=== PATIENT | male | born 1975 | race Caucasian/White ===

== ENCOUNTER → 2020-04-02 11:04 | Outpatient (CLI) | payer OTHER, MEDICAID, SELFPAY ==
--- NOTE | 2020-04-02 | DI.US.S_ITS ---
PROCEDURE: US RENAL COMPLETE INDICATIONS: PERSONAL HISTORY OF RENAL CALCULI TECHNIQUE: Real-time scanning was performed of the kidneys and bladder, with image documentation. COMPARISON: Outside Film, US, US ABDOMEN COMPLETE, 11/26/2019, 15:14. Outside Film, CT, CT ABDOMEN PELVIS WITH CONTRAST, 12/19/2019, 5:29. FINDINGS: Kidneys: Kidneys are normal in size. Right kidney measures 11.8 cm long; left kidney measures 10.8 cm long. Right renal cortical thickness is 1.6 cm; left renal cortical thickness is 1.5 cm. Renal cortical echotexture is normal. No suspicious solid mass lesions. Mild persistent hydronephrosis of the right kidney, similar to the prior ultrasound 11/26/2019. This persists postvoid. No hydronephrosis on the left. Bladder: Pre-void bladder volume is 76 mL. Post-void residual is 6 mL. Pre-void images demonstrate no intraluminal masses or stones. On pre-void images, both ureteral jets are noted with color Doppler interrogation. (Of note, ureteral jets may not be detectable in up to 25% of cases due to insufficient differences in specific gravity between ureteral and bladder urine). Miscellaneous: No free pelvic fluid. IMPRESSION: 1. Mild persistent right hydronephrosis. Previously seen right ureteral stone in the proximal right ureter is not identified. -consider CT KUB for further evaluation. 2. No left hydronephrosis. 3. No significant postvoid residual. Dictated by: Armani Peña M.D. on 04/02/2020 at 13:32 Approved by: Armani Peña M.D. on 04/02/2020 at 13:46
== END ==
PROVIDERS: PCP Family Medicine; Referring Provider Urology; Visit Provider Urology
DX: N13.30 Unspecified hydronephrosis (principal); Z87.442 Personal history of urinary calculi
CPT/HCPCS: 76770

== ENCOUNTER 2021-07-01 03:12 | Emergency (ER) | payer OTHER, MEDICAID, SELFPAY ==
[2021-07-01 03:15] VITALS: BP 170/84; PULSE 64; RESP 18; TEMP 36.7; O2SAT 98; BMI 43.8
--- NOTE | 2021-07-01 04:22 | ED_ITS ---
HPI - Back Pain/Injury General Chief Complaint: Back Pain/Injury Stated Complaint: kidney pain x14 days Time Seen by Provider: 07/01/21 03:37 Source: patient History of Present Illness HPI Narrative: Patient is a 38-year-old male history kidney stones, gastric bypass surgery 2016 and very remote history of lithotripsy presenting with ongoing weakness fatigue chills and sweats. He was actually diagnosed with pyelonephritis in May [facility] on 05/26/2021. Had that time he had blood work and CT scan urine culture did show E coli he was placed on cefdinir as an outpatient for 10 days. He said actually follow-up this primary care provider who put him on another 10 day course of Levaquin which she finished today. He says for the last 1 week he continues to feel weak and lethargic. He says he has temperature regulation issues he wakes up and has significant drenching sweats. He has lost 10-12 lb in the last 1 week without trying. He denies any chest pain or palpitations. He continues to have intermittent left flank pain. No painful or frequent urination. Certainly he has had loss of appetite as well. He does approve a little pale. He denies any black or bloody stools Related Data Allergies Allergy/AdvReac Type Severity Reaction Status Date / Time Penicillins Allergy Unknown Verified 07/01/21 03:58 Sulfa (Sulfonamide Allergy Unknown Verified 07/01/21 03:57 Antibiotics) Review of Systems Review of Systems Narrative: GENERAL: See HPI HEENT: Denies sinus pain, ear pain, sore throat, difficulty swallowing, neck pain RESPIRATORY: Denies dyspnea, cough, wheezing, hemoptysis, sputum. CARDIOVASCULAR: Denies chest pain, palpitations, orthopnea, edema GASTROINTESTINAL: Denies nausea, vomiting, abdominal pain, diarrhea, constipation, melena. : See HPI MUSCULOSKELETAL: Denies weakness, joint pain, or bony pain SKIN: No rash, no erythema, no pruritus NEUROLOGIC: Denies weakness, dizziness, headache, numbness, change in speech, confusion PSYCHIATRIC: No concerning psychosocial issues. 12 point review of systems is negative except for those stated above and HPI Patient History Medical History (Updated 07/01/21 @ 04:54 by Madyson Valentin DO) Hypertension Kidney stones Surgical History (Updated 07/01/21 @ 04:25 by Madyson Valentin DO) Status post gastric bypass for obesity Social History Smoking Status: Never smoker Smoking Status: Never smoker Substance Use Type: does not use Exam Initial Vital Signs Initial Vital Signs: Vital Signs Temperature 98.1 F 07/01/21 03:15 Pulse Rate 64 07/01/21 03:15 Respiratory Rate 18 07/01/21 03:15 Blood Pressure 170/84 H 07/01/21 03:15 Pulse Oximetry 98 07/01/21 03:15 GENERAL alert 46-year-old male appears slightly pale HEENT: Head atraumatic,EOMI, pupils reactive, face symmetric, moist mucous membranes CARDIOVASCULAR: Regular rate and rhythm without murmurs, rubs or gallops. RESPIRATORY: Breath sounds equal bilaterally, no wheezes rales or rhonchi. ABDOMEN: Soft, nontender. Normoactive bowel sounds all 4 quadrants. No guar ding or rebound. : No CVA tenderness EXTREMITIES: Normal range of motion, no clubbing or edema. Neurovascularly intact NEUROLOGICAL: Alert and oriented x4.Normal gait and speech SKIN: Warm, dry, no laceration, no petechiae, no rashes or lesions. Course Orders Ordered: ED Orders 07/01/21 04:15 COVID19 -Nasal swab/Pre-Proc Stat Complete Blood Count AUTO DIFF Stat Comprehensive Metabolic Panel Stat Lactate (Lactic Acid) Stat Lipase Stat Procalcitonin Stat Discontinued Medications Sodium Chloride (Normal Saline 0.9%) 1,000 mls @ 1,000 mls/hr IV CONT JUAN Last Infusion: 07/01/21 05:34 Dose: 0 mls/hr Documented by: Infusion: 07/01/21 05:29 Dose: 0 mls/hr Documented by: Admin: 07/01/21 04:44 Dose: 1,000 mls/hr Documented by: ASHISH Vital Signs Vital signs: Vital Signs - 8 hr 07/01/21 03:15 07/01/21 05:23 Temperature 98.1 F Pulse Rate 64 58 L Respiratory Rate 18 20 Blood Pressure 170/84 H 131/76 Pulse Oximetry 98 99 MDM - Back Pain/Injury Lab Data Result diagrams: 07/01/21 04:15 07/01/21 04:15 Labs: Lab Results 07/01/21 07/01/21 07/01/21 Range/Units 04:15 04:15 04:15 WBC 8.6 (4.5-11.0) X10^3/uL RBC 3.90 L (4.5-5.9) X10^6/uL Hgb 10.6 L (13.5-17.5) g/dL Hct 31.6 L (41-53) % MCV 80.9 (80-100) fL MCH 27.1 (26-34) PG MCHC 33.5 (30-36) % RDW 13.5 (11.6-14.8) % Plt Count 369 (150-400) X10^3/uL Neut % (Auto) 75.8 H (50-75) % Lymph % (Auto) 17.2 L (25-40) % [place] % (Auto) 5.0 (3-14) % Eos % (Auto) 0.9 L (2-4) % Baso % (Auto) 1.1 (0-2) % Neut # (Auto) 6600 (2247-8429) /uL Lymph # (Auto) 1500 (7279-7547) /uL [place] # (Auto) 400 (0-900) /uL Eos # (Auto) 100 (0-450) /uL Baso # (Auto) 100 (0-100) /uL Sodium 134 L (137-145) mmol/L Potassium 3.9 (3.4-5.1) mmol/L Chloride 99 (98-107) mmol/L Carbon Dioxide 31 (22-32) mmol/L BUN 9 (9-20) mg/dL Creatinine 0.73 (0.66-1.25) mg/dL Estimated GFR > 60.0 (>60) mL/min BUN/Creatinine Ratio 12.3 (6-22) Glucose 97 (70-100) mg/dL Lactate 1.1 (0.7-2.1) mmol/L Calcium 8.7 (8.4-10.2) mg/dL Total Bilirubin 0.5 (0.2-1.3) mg/dL AST 46 (17-59) IU/L ALT 37 (<50) IU/L Alkaline Phosphatase 87 (38-126) U/L Total Protein 7.7 (6.3-8.2) g/dL Albumin 3.4 L (3.5-5.0) g/dL Globulin 4.3 H (1.7-4.1) g/dL Albumin/Globulin Ratio 0.8 L (1.0-2.8) Lipase 28 (23-300) U/L Procalcitonin (<0.5) ng/mL SARS-CoV-2 (PCR) (Negative) 07/01/21 07/01/21 Range/Units 04:15 04:15 WBC (4.5-11.0) X10^3/uL RBC (4.5-5.9) X10^6/uL Hgb (13.5-17.5) g/dL Hct (41-53) % MCV (80-100) fL MCH (26-34) PG MCHC (30-36) % RDW (11.6-14.8) % Plt Count (150-400) X10^3/uL Neut % (Auto) (50-75) % Lymph % (Auto) (25-40) % [place] % (Auto) (3-14) % Eos % (Auto) (2-4) % Baso % (Auto) (0-2) % Neut # (Auto) (6427-5863) /uL Lymph # (Auto) (1365-8779) /uL [place] # (Auto) (0-900) /uL Eos # (Auto) (0-450) /uL Baso # (Auto) (0-100) /uL Sodium (137-145) mmol/L Potassium (3.4-5.1) mmol/L Chloride (98-107) mmol/L Carbon Dioxide (22-32) mmol/L BUN (9-20) mg/dL Creatinine (0.66-1.25) mg/dL Estimated GFR (>60) mL/min BUN/Creatinine Ratio (6-22) Glucose (70-100) mg/dL Lactate (0.7-2.1) mmol/L Calcium (8.4-10.2) mg/dL Total Bilirubin (0.2-1.3) mg/dL AST (17-59) IU/L ALT (<50) IU/L Alkaline Phosphatase (38-126) U/L Total Protein (6.3-8.2) g/dL Albumin (3.5-5.0) g/dL Globulin (1.7-4.1) g/dL Albumin/Globulin Ratio (1.0-2.8) Lipase (23-300) U/L Procalcitonin 0.08 (<0.5) ng/mL SARS-CoV-2 (PCR) Negative (Negative) Urine Dip Bedside Urine Glucose Negative Bedside Urine Bilirubin - Negative Bedside Urine Ketone - Negative Urine Specific [place] 1.015 Bedside Urine Occult Blood - Negative Bedside Urine pH 6.0 Bedside Urine Protein - Negative Bedside Urine Urobilinogen 2+ 4mg Bedside Urine Nitrite - Negative Bedside Urine Leukocytes - Negative Esterase MDM Narrative Medical decision making narrative: The patient presents with generalized weakness and symptoms consistent with an infectious process. However no infection is found. He has no leukocytosis. Hemoglobin hematocrit is 10.6 and 31.6 according to [facility] records from May 26 hemoglobin hematocrit at that time or 12.7 and 39 respectively. He denies any black or tarry stools. He is hemodynamically stable does not meet any sort of criteria for blood transfusion. Previously toady of elevated leukocytosis however certainly not the case today. Procalcitonin lactic acid are also negative. At this time I see no indication to continue antibiotics he is not having any significant back pain I do not have any concern for dissection. He is a little hypertensive he does need to refill his blood pressure medication which he is able to do. At this time recommend close follow-up with his PCP. Discharge Plan Departure Patient Disposition: Home Clinical Impression: Hypertension Instructions: Essential Hypertension Activity Restrictions/Additional Instructions: *You have been diagnosed with hypertension *What to do: At this time put work is overall reassuring no sign of anemia or infection. No need for further antibiotics. Please follow-up with her primary care provider. *Continue to take medications as directed *Follow up with your primary care provider in 2-3 days or call [phone] *Return to ER if you should have increasing weakness, worsening back pain, fever, any new, worsening or concerning symptoms Referrals: Khang Arechiga MD [Primary Care Provider] - Mati Samayoa MD [Non-Staff] -
[2021-07-01 04:32] LABS: Add Manual Diff / Slide Review NO; Basophils Absolute Auto 100 /uL (0-100); Basophils Percent Auto 1.1 % (0-2); Eosinophils Absolute Auto 100 /uL (0-450); Eosinophils Percent Auto 0.9 % (2-4); Hematocrit 31.6 % (41-53); Hemoglobin 10.6 g/dL (13.5-17.5); Lymphocytes Absolute Auto 1500 /uL (1100-4500); Lymphocytes Percent Auto 17.2 % (25-40); Mean Corpuscular HGB Conc 33.5 % (30-36); Mean Corpuscular Hemoglobin 27.1 PG (26-34); Mean Corpuscular Volume 80.9 fL (80-100); Monocytes Absolute Auto 400 /uL (0-900); Neutrophils Absolute Auto 6600 /uL (1500-7000); Neutrophils Percent Auto 75.8 % (50-75); Platelet Count 369 X10^3/uL (150-400); Red Cell Distribution Width 13.5 % (11.6-14.8); White Blood Cell Count 8.6 X10^3/uL (4.5-11.0)
[2021-07-01 04:38] LABS: Lactate (Lactic Acid) 1.1 mmol/L (0.7-2.1)
[2021-07-01 04:39] LABS: Alanine Aminotransferase 37 IU/L (<50); Albumin 3.4 g/dL (3.5-5.0); Albumin Globulin Ratio 0.8 (1.0-2.8); Alkaline Phosphatase 87 U/L (38-126); Aspartate Aminotransferase 46 IU/L (17-59); BUN Creatinine Ratio 12.3 (6-22); Bilirubin Total 0.5 mg/dL (0.2-1.3); Blood Urea Nitrogen 9 mg/dL (9-20); Calcium 8.7 mg/dL (8.4-10.2); Carbon Dioxide 31 mmol/L (22-32); Chloride 99 mmol/L (98-107); Estimated Glomerular Filt Rate > 60.0 mL/min (>60); Globulin 4.3 g/dL (1.7-4.1); Glucose 97 mg/dL (70-100); HEMOLYSIS < 15 (0-50); Lipase 28 U/L (23-300); Potassium 3.9 mmol/L (3.4-5.1); Sodium 134 mmol/L (137-145); Total Protein 7.7 g/dL (6.3-8.2)
[2021-07-01 04:43] LABS: COVID19 -Nasal RAPID Negative (Negative)
[2021-07-01] MEDS: SODIUM CHLORIDE 0.9% 1,000 ML 1000 ML IV (04:44)
[2021-07-01 05:03] LABS: Procalcitonin 0.08 ng/mL (<0.5)
[2021-07-01 05:23] VITALS: BP 131/76; PULSE 58; RESP 20; O2SAT 99
== END 2021-07-01 05:35 | disposition home or self-care (01) ==
PROVIDERS: Emergency Provider Emergency Medicine; PCP Family Medicine
DX: R53.1 Weakness (principal); I10 Essential (primary) hypertension; Z20.822 Contact with and (suspected) exposure to COVID-19
CPT/HCPCS: 36415; 80053; 81003; 83605; 83690; 84145; 85025; 87635; 96360; 99284; C9803

== ENCOUNTER 2021-11-14 00:36 | Emergency (ER) | payer OTHER, MEDICAID, SELFPAY ==
[2021-11-14 00:10] VITALS: BP 182/100; PULSE 60; RESP 20; O2SAT 100; BMI 46.8
--- NOTE | 2021-11-14 00:53 | ED_ITS ---
HPI - General Adult General Chief complaint: Abdominal Pain Stated complaint: left groin pain Time Seen by Provider: 11/14/21 00:44 Source: patient and EMS Mode of arrival: EMS History of Present Illness HPI narrative: 46-year-old male who is brought in by EMS for evaluation of left-sided groin pain. Patient states that it started relatively suddenly earlier this evening is progressively worsened since then. He does feel like it is radiating up to his left flank. He denies any urinary symptoms. No fevers. No nausea vomiting. No testicular pain. He has had a gastric bypass in the past. He has also had a left-sided hydrocele. Has a child. He did receive fentanyl prior to arrival. Related Data Allergies Allergy/AdvReac Type Severity Reaction Status Date / Time Penicillins Allergy Unknown Verified 07/01/21 03:58 Sulfa (Sulfonamide Allergy Unknown Verified 07/01/21 03:57 Antibiotics) Review of Systems Constitutional Constitutional: Denies fever(s) Gastrointestinal Gastrointestinal: Reports as per HPI and Reports system reviewed and no additional complaints, except as documented Genitourinary Genitourinary: Reports system reviewed and no additional complaints, except as documented and Reports as per HPI Musculoskeletal Musculoskeletal: Reports system reviewed and no additional complaints, except as documented Integumentary/Breasts Skin/Breast: Reports system reviewed and no additional complaints, except as documented Patient History Medical History Hypertension Kidney stones Surgical History Status post gastric bypass for obesity Social History Smoking Status: Never smoker Smoking Status: Never smoker Substance Use Type: does not use Exam Initial Vital Signs Initial Vital Signs: Vital Signs Pulse Rate 60 11/14/21 00:10 Respiratory Rate 20 11/14/21 00:10 Blood Pressure 182/100 H 11/14/21 00:10 Pulse Oximetry 100 11/14/21 00:10 HENMT Head: normal to inspection and normocephalic Resp Effort & Inspection: normal respiratory effort Cardio Rate: regular rate GI Inspection: normal to inspection Palpation: soft Other: Does have a fairly large pannus with extra skin folds. Unable to feel any definitive hernia. Unable to pinpoint exactly where his discomfort is located. No hernia felt. Other: Left testicle is atrophic but this is not new. His right testicle is descended. Bilateral testicles are not tender to palpation. Scrotum is unremarkable. Skin General: no rashes or lesions noted Neuro General: patient alert, patient awake and moves all extremities Extrem General: capillary refill normal Course Orders Ordered: ED Orders 11/14/21 00:55 CT abdomen pelvis w con Stat 11/14/21 00:58 Complete Blood Count AUTO DIFF Stat Comprehensive Metabolic Panel Stat Lactate (Lactic Acid) Stat Lipase Stat 11/14/21 02:50 Urine Culture Stat Urine Microscopic Stat Discontinued Medications Sodium Chloride (Normal Saline 0.9%) 1,000 mls @ 1,000 mls/hr IV BOLUS ONE Stop: 11/14/21 01:53 Last Infusion: 11/14/21 03:00 Dose: 0 mls/hr Documented by: Admin: 11/14/21 01:04 Dose: 1,000 mls/hr Documented by: ANDER Morphine Sulfate (Morphine 4 Mg/Ml Inj) 4 mg IV NOW ONE Stop: 11/14/21 00:55 Last Admin: 11/14/21 01:04 Dose: 4 mg Documented by: ANDER Vital Signs Vital signs: Vital Signs - 8 hr 11/14/21 00:10 Pulse Rate 60 Respiratory Rate 20 Blood Pressure 182/100 H Pulse Oximetry 100 Medical Decision Making Lab Data Lab results reviewed: Yes I reviewed the patient's lab results. Result diagrams: 11/14/21 00:58 11/14/21 00:58 Labs: Lab Results 11/14/21 11/14/21 11/14/21 Range/Units 00:58 00:58 00:58 WBC 8.1 (4.5-11.0) X10^3/uL RBC 4.67 (4.5-5.9) X10^6/uL Hgb 12.9 L (13.5-17.5) g/dL Hct 38.2 L (41-53) % MCV 81.6 (80-100) fL MCH 27.7 (26-34) PG MCHC 33.9 (30-36) % RDW 14.4 (11.6-14.8) % Plt Count 186 (150-400) X10^3/uL Neut % (Auto) 77.6 H (50-75) % Lymph % (Auto) 16.9 L (25-40) % [place] % (Auto) 3.6 (3-14) % Eos % (Auto) 1.6 L (2-4) % Baso % (Auto) 0.3 (0-2) % Neut # (Auto) 6300 (0180-9205) /uL Lymph # (Auto) 1400 (5789-3095) /uL [place] # (Auto) 300 (0-900) /uL Eos # (Auto) 100 (0-450) /uL Baso # (Auto) 0 (0-100) /uL Sodium 139 (137-145) mmol/L Potassium 4.4 (3.4-5.1) mmol/L Chloride 102 (98-107) mmol/L Carbon Dioxide 29 (22-32) mmol/L BUN 14 (9-20) mg/dL Creatinine 0.80 (0.66-1.25) mg/dL Estimated GFR > 60 (>60) mL/min BUN/Creatinine Ratio 17.5 (6-22) Glucose 118 H (70-100) mg/dL Lactate 1.0 (0.7-2.1) mmol/L Calcium 8.8 (8.4-10.2) mg/dL Total Bilirubin 0.6 (0.2-1.3) mg/dL AST 29 (17-59) IU/L ALT 24 (<50) IU/L Alkaline Phosphatase 68 (38-126) U/L Total Protein 7.8 (6.3-8.2) g/dL Albumin 4.2 (3.5-5.0) g/dL Globulin 3.6 (1.7-4.1) g/dL Albumin/Globulin Ratio 1.2 (1.0-2.8) Lipase 41 (23-300) U/L Urine Dip Bedside Urine Glucose Negative Bedside Urine Bilirubin - Negative Bedside Urine Ketone - Negative Urine Specific [place] 1.010 Bedside Urine Occult Blood +/- Bedside Urine pH 8.5 Bedside Urine Protein - Negative Bedside Urine Urobilinogen - Negative Bedside Urine Nitrite - Negative Bedside Urine Leukocytes - Negative Esterase Point of care testing: Urine Dip Bedside Urine Glucose Negative Bedside Urine Bilirubin - Negative Bedside Urine Ketone - Negative Urine Specific [place] 1.010 Bedside Urine Occult Blood +/- Bedside Urine pH 8.5 Bedside Urine Protein - Negative Bedside Urine Urobilinogen - Negative Bedside Urine Nitrite - Negative Bedside Urine Leukocytes - Negative Esterase Imaging Data CT scan - abdomen/pelvis: Radiologist's Impression: [address] [address] [address] Scan Report Signed Patient: Vu Momin III MR#: [id number] : 1975 Acct:[id number] Age/Sex: 46 / M Date of Service: 11/14/21 Loc: ED Accession Number: [id number] ?? Procedure: CT abdomen pelvis w con Ordering Provider: Alcides Gilbert D.O. PROCEDURE:? CT ABDOMEN PELVIS W CON ? INDICATIONS:? Left-sided abdominal pain ? TECHNIQUE:? After the administration of IV contrast, axial sections were acquired from the lung bases to the pubic symphysis.? Coronal and sagittal reformats were performed.? For radiation dose reduction, the following was used:? automated exposure control, adjustment of mA and/or kV according to patient size. ? COMPARISON:? None. ? FINDINGS:? Image quality:? Excellent.? ? Lung bases:? Visualized lung bases are clear.? ? Heart:? Heart is normal in size.? There is a small to moderate hiatal hernia. ? ? ABDOMEN: Liver:? No mass lesion. Gallbladder:? Within normal limits without calcified gallstones.? ? Biliary ducts:? No biliary ductal dilatation.? ? Pancreas:? Unremarkable.? ? Spleen:? The spleen is enlarged, measuring up to 17.6 cm. Adrenal Glands:? No adrenal nodules.? ? Kidneys and Ureters:? There is an obstructing stone within the distal right ureter measuring up to 0.9 cm with associated mild right hydroureteronephrosis.? The stone demonstrates attenuation values of approximately 700-800 Hounsfield units.? The left kidney demonstrates no stones or hydronephrosis.? There is mild left perinephric stranding. ? Stomach and Bowel:? Postsurgical changes are demonstrated consistent with prior gastric bypass.? Stomach, small bowel loops, and colon are normal in caliber and wall thickness.? There is colonic diverticulosis without acute diverticulitis.? Peritoneum:? No abnormal intraperitoneal fluid.? No free air.? ? Ventral Wall: ? No hernia.? Abdominal Nodes:? No retroperitoneal or mesenteric adenopathy by size criteria.? Vessels:? Aorta and inferior vena cava are normal in size.? ? PELVIS: Pelvic Organs:? Unremarkable.? ? Bladder:? Unremarkable.? ? Pelvic Nodes: No enlarged lymph nodes.? Miscellaneous:? There is a small left inguinal hernia containing a short segment of herniated small bowel. ? Bones:? Visualized osseous structures demonstrate no suspicious focal lesions. ? IMPRESSION:? ? 1. Distal right ureteral stone with mild right hydroureteronephrosis. ? 2. No left nephrolithiasis or left hydronephrosis. ? 3. Small left inguinal hernia containing a short herniated segment of small bowel.? Recommend correlation with clinical exam.? ? 4. Colonic diverticulosis without acute diverticulitis. ? 5. Postsurgical changes demonstrated status post gastric bypass.? No evidence of associated bowel obstruction.? ? Dictated by: Rigoberto Diana M.D. on 11/14/2021 at 1:50 ? ? Approved by: Rigoberto Diana M.D. on 11/14/2021 at 1:58? MDM Narrative Medical decision making narrative: Labs are unremarkable. Does have blood in his urine but no other signs of infection. Skin over his abdomen is unremarkable. His testicular exam is unremarkable. CT scan of his abdomen shows a right-sided distal ureteral stone. Patient states that he has been told that he has had a stone on this side in the past. He has no right-sided symptoms today. He does have a left-sided inguinal hernia but there is no signs of incarceration/strangulation. Given his body habitus where unable to feel this on exam. No indication for emergent surgical consultation. Discussed potential of having a left-sided ureteral stone that has since passed however he has not urinated since arrival to the emergency department and when he had the CT scan performed will then I would suspect that the stone would be visualized at least in the bladder if this was the case. She has no signs of bowel obstruction. He was given phone numbers to follow up with Urology given the right-sided ureteral stone and also General surgery for the left-sided inguinal hernia. He was given return precautions. He expressed understanding and agreement. Discharge Plan Departure Patient Disposition: Home Clinical Impression: Right ureteral stone, Abdominal pain, Left groin hernia Instructions: DI for Abdominal Pain-Adult Activity Restrictions/Additional Instructions: I do recommend on Tuesday you contact the urologist office given the right sided stone that was noted on the CT scan. I also recommend that you contact the general surgery office to discuss the inguinal hernia seen on the left. Continue to take any medications as directed and return to the emergency department for any new or worsening symptoms. Referrals: Khang Arechiga MD [Primary Care Provider] - Ming Titus MD [Physician] - Halley Maddox MD [Physician] -
--- NOTE | 2021-11-14 00:55 | DI.CT.S_ITS ---
PROCEDURE: CT ABDOMEN PELVIS W CON INDICATIONS: Left-sided abdominal pain TECHNIQUE: After the administration of IV contrast, axial sections were acquired from the lung bases to the pubic symphysis. Coronal and sagittal reformats were performed. For radiation dose reduction, the following was used: automated exposure control, adjustment of mA and/or kV according to patient size. COMPARISON: None. FINDINGS: Image quality: Excellent. Lung bases: Visualized lung bases are clear. Heart: Heart is normal in size. There is a small to moderate hiatal hernia. ABDOMEN: Liver: No mass lesion. Gallbladder: Within normal limits without calcified gallstones. Biliary ducts: No biliary ductal dilatation. Pancreas: Unremarkable. Spleen: The spleen is enlarged, measuring up to 17.6 cm. Adrenal Glands: No adrenal nodules. Kidneys and Ureters: There is an obstructing stone within the distal right ureter measuring up to 0.9 cm with associated mild right hydroureteronephrosis. The stone demonstrates attenuation values of approximately 700-800 Hounsfield units. The left kidney demonstrates no stones or hydronephrosis. There is mild left perinephric stranding. Stomach and Bowel: Postsurgical changes are demonstrated consistent with prior gastric bypass. Stomach, small bowel loops, and colon are normal in caliber and wall thickness. There is colonic diverticulosis without acute diverticulitis. Peritoneum: No abnormal intraperitoneal fluid. No free air. Ventral Wall: No hernia. Abdominal Nodes: No retroperitoneal or mesenteric adenopathy by size criteria. Vessels: Aorta and inferior vena cava are normal in size. PELVIS: Pelvic Organs: Unremarkable. Bladder: Unremarkable. Pelvic Nodes: No enlarged lymph nodes. Miscellaneous: There is a small left inguinal hernia containing a short segment of herniated small bowel. Bones: Visualized osseous structures demonstrate no suspicious focal lesions. IMPRESSION: 1. Distal right ureteral stone with mild right hydroureteronephrosis. 2. No left nephrolithiasis or left hydronephrosis. 3. Small left inguinal hernia containing a short herniated segment of small bowel. Recommend correlation with clinical exam. 4. Colonic diverticulosis without acute diverticulitis. 5. Postsurgical changes demonstrated status post gastric bypass. No evidence of associated bowel obstruction. Dictated by: Rigoberto Diana M.D. on 11/14/2021 at 1:50 Approved by: Rigoberto Diana M.D. on 11/14/2021 at 1:58
[2021-11-14] MEDS: MORPHINE 4 MG/ML INJ IV (01:04)
[2021-11-14] MEDS: SODIUM CHLORIDE 0.9% 1,000 ML 1000 ML IV (01:04)
[2021-11-14 01:13] LABS: Add Manual Diff / Slide Review NO; Basophils Absolute Auto 0 /uL (0-100); Basophils Percent Auto 0.3 % (0-2); Eosinophils Absolute Auto 100 /uL (0-450); Eosinophils Percent Auto 1.6 % (2-4); Hematocrit 38.2 % (41-53); Hemoglobin 12.9 g/dL (13.5-17.5); Lymphocytes Absolute Auto 1400 /uL (1100-4500); Lymphocytes Percent Auto 16.9 % (25-40); Mean Corpuscular HGB Conc 33.9 % (30-36); Mean Corpuscular Hemoglobin 27.7 PG (26-34); Mean Corpuscular Volume 81.6 fL (80-100); Monocytes Absolute Auto 300 /uL (0-900); Monocytes Percent Auto 3.6 % (3-14); Neutrophils Absolute Auto 6300 /uL (1500-7000); Neutrophils Percent Auto 77.6 % (50-75); Platelet Count 186 X10^3/uL (150-400); Red Blood Cell Count 4.67 X10^6/uL (4.5-5.9); Red Cell Distribution Width 14.4 % (11.6-14.8); White Blood Cell Count 8.1 X10^3/uL (4.5-11.0)
[2021-11-14 01:18] LABS: Alanine Aminotransferase 24 IU/L (<50); Albumin 4.2 g/dL (3.5-5.0); Albumin Globulin Ratio 1.2 (1.0-2.8); Alkaline Phosphatase 68 U/L (38-126); Aspartate Aminotransferase 29 IU/L (17-59); BUN Creatinine Ratio 17.5 (6-22); Bilirubin Total 0.6 mg/dL (0.2-1.3); Blood Urea Nitrogen 14 mg/dL (9-20); Calcium 8.8 mg/dL (8.4-10.2); Carbon Dioxide 29 mmol/L (22-32); Chloride 102 mmol/L (98-107); Estimated Glomerular Filt Rate > 60 mL/min (>60); Globulin 3.6 g/dL (1.7-4.1); Glucose 118 mg/dL (70-100); HEMOLYSIS < 15 (0-50); Lipase 41 U/L (23-300); Potassium 4.4 mmol/L (3.4-5.1); Sodium 139 mmol/L (137-145); Total Protein 7.8 g/dL (6.3-8.2)
[2021-11-14 03:17] LABS: Bacteria Urine None Seen; RBC Urine 0-1/HPF (0-5/HPF); WBC Urine None Seen (0-5/HPF)
[2021-11-14 03:35] VITALS: BP 159/93; PULSE 75; RESP 18; O2SAT 98
== END 2021-11-14 03:38 | disposition home or self-care (01) ==
PROVIDERS: Emergency Provider Emergency Medicine; PCP Family Medicine
DX: N20.1 Calculus of ureter (principal); K40.90 Unilateral inguinal hernia, without obstruction or gangrene, not specified as recurrent; R10.30 Lower abdominal pain, unspecified
CPT/HCPCS: 74177; 80053; 81003; 81015; 83605; 83690; 85025; 87086; 96374; 99283; 99284; J2270